=== PATIENT | male | born 1955 | race African-American/Black ===

== ENCOUNTER 2019-09-06 14:47 | Emergency (ER) | payer OTHER ==
[~2019-09-06] VITALS: Ht 188 cm; Wt 97.3 kg
[~2019-09-06 14:47] MED LIST: OXYC80 PO; VICOT
[2019-09-06] MEDS ORDERED: ASPI81 PO (15:12)
[2019-09-06] MEDS ORDERED: LITH300C3 PO (15:12)
[2019-09-06] MEDS ORDERED: ATOR40TA28 PO (15:12)
[2019-09-06] MEDS ORDERED: LIDOCAINE 5% TRANSDERMAL PATCH TD ONE (16:15)
[2019-09-06] MEDS ORDERED: NAPROXEN 250 MG TABLET PO ONE (16:15)
[2019-09-06 17:05] VITALS: BP 121/77
== END 2019-09-06 17:09 | disposition home or self-care (01) ==
LOC: EMS 14:49
DX: S29.012A Strain of muscle and tendon of back wall of thorax, initial encounter (principal); F17.210 Nicotine dependence, cigarettes, uncomplicated; F31.9 Bipolar disorder, unspecified; I10 Essential (primary) hypertension; Z88.0 Allergy status to penicillin; Z79.82 Long term (current) use of aspirin; X58.XXXA Exposure to other specified factors, initial encounter; Y93.89 Activity, other specified; Y92.89 Other specified places as the place of occurrence of the external cause; Y99.8 Other external cause status
CPT/HCPCS: 99406

== ENCOUNTER 2020-07-30 23:22 | Emergency (ER) | payer MEDICARE, OTHER ==
[~2020-07-30] VITALS: Ht 188 cm; Wt 95.9 kg
[~2020-07-30 23:22] MED LIST changes: +ASPI-728 PO; +ATOR40TA28 PO; +LITH300C3 PO; -OXYC80 PO; -VICOT
[2020-07-30] MEDS ORDERED: DIAZEPAM 5 MG TABLET PO ONE (23:45)
[2020-07-30] MEDS ORDERED: LIDOCAINE 5% TRANSDERMAL PATCH TD ONE (23:45)
[2020-07-30] MEDS ORDERED: KETOROLAC TROMETHAMINE 30 MG/ML VIAL IM ONE (23:45)
[2020-07-30] MEDS ORDERED: ACETAMINOPHEN 500 MG TABLET PO ONE (23:45)
[2020-07-30 23:58] LABS: APPEARANCE,URINE CLEAR (CLEAR); BILIRUBIN,URINE NEGATIVE (NEGATIVE); GLUCOSE, URINE (UA) NEGATIVE (NEGATIVE); KETONES,URINE TRACE mg/dL (NEGATIVE); LEUKOCYTE ESTERASE ,URINE NEGATIVE (NEGATIVE); NITRATE,URINE NEGATIVE (NEGATIVE); OCCULT BLOOD,URINE NEGATIVE (NEGATIVE); PH,URINE 5.5 (5.0-8.0); PROTEIN,URINE TRACE (NEGATIVE)
[2020-07-31 00:02] LABS: BACTERIA,URINE Rare /HPF (None Seen); RBC,URINE 0-2 /HPF (0-2); SQUAMOUS EPITHELIAL CELL,UR Rare /LPF (None Seen); WBC,URINE 0-2 /HPF (0-5)
[2020-07-31] MEDS ORDERED: ONDANSETRON HCL 4 MG TABLET PO ONE (01:00)
[2020-07-31] MEDS ORDERED: DIAZEPAM 5 MG TABLET PO ONE (01:00)
[2020-07-31 02:42] VITALS: BP 132/79
== END 2020-07-31 03:17 | disposition home or self-care (01) ==
LOC: EMS 23:23
DX: S29.012A Strain of muscle and tendon of back wall of thorax, initial encounter (principal); F31.9 Bipolar disorder, unspecified; F17.210 Nicotine dependence, cigarettes, uncomplicated; Z88.0 Allergy status to penicillin; X50.0XXA Overexertion from strenuous movement or load, initial encounter; Y93.89 Activity, other specified; Y92.89 Other specified places as the place of occurrence of the external cause; Y99.8 Other external cause status
CPT/HCPCS: 81001; 96372; 99285; J1885; Q0162

== ENCOUNTER 2020-08-12 14:54 | Emergency (ER) | payer MEDICARE, OTHER ==
[~2020-08-12] VITALS: Ht 188 cm; Wt 96.4 kg
[2020-08-12] MEDS: KETOROLAC TROMETHAMINE 30 MG/ML VIAL IVP ONE (15:35)
[2020-08-12] MEDS: DEXAMETHASONE SOD PHOS 4 MG/ML VIAL IVP ONE (15:35)
[2020-08-12] MEDS: HYDROCODONE/ACETAMINOPHEN 10-325 MG TABLET PO ONE (16:40)
[2020-08-12 17:23] LABS: APPEARANCE,URINE CLEAR (CLEAR); BILIRUBIN,URINE NEGATIVE (NEGATIVE); GLUCOSE, URINE (UA) NEGATIVE (NEGATIVE); KETONES,URINE NEGATIVE (NEGATIVE); LEUKOCYTE ESTERASE ,URINE NEGATIVE (NEGATIVE); NITRATE,URINE NEGATIVE (NEGATIVE); OCCULT BLOOD,URINE NEGATIVE (NEGATIVE); PROTEIN,URINE NEGATIVE (NEGATIVE)
[2020-08-12 17:30] VITALS: BP 166/102
[2020-08-12 17:33] LABS: BACTERIA,URINE None Seen /HPF (None Seen); RBC,URINE None Seen /HPF (0-2); SQUAMOUS EPITHELIAL CELL,UR Rare /LPF (None Seen); WBC,URINE None Seen /HPF (0-5)
== END 2020-08-12 18:18 | disposition home or self-care (01) ==
LOC: EMS 14:54
DX: S39.012A Strain of muscle, fascia and tendon of lower back, initial encounter (principal); F31.9 Bipolar disorder, unspecified; I10 Essential (primary) hypertension; F17.210 Nicotine dependence, cigarettes, uncomplicated; Z88.0 Allergy status to penicillin; X58.XXXA Exposure to other specified factors, initial encounter; Y93.89 Activity, other specified; Y92.89 Other specified places as the place of occurrence of the external cause; Y99.8 Other external cause status
CPT/HCPCS: 71045; 81001; 96374; 96375; 99284; J1100; J1885